=== PATIENT | female | born 1970 | race Native Hawaiian/Other Pacific Islander ===

== ENCOUNTER 2017-06-12 11:50 | Emergency (ER) | payer OTHER ==
[~2017-06-12] VITALS: Ht 172.7 cm; Wt 89.4 kg
[2017-06-12 11:55] VITALS: TEMP 98.1
[2017-06-12 14:20] VITALS: BP 167/89
== END 2017-06-12 14:20 | disposition home or self-care (01) ==
LOC: ED 11:50
DX: R07.89 Other chest pain (principal); I10 Essential (primary) hypertension
CPT/HCPCS: 36415; 83880; 93005; 96374; 96375; 99284; J1200; J2270; J2405; J2930; J3490